=== PATIENT | male | born 1975 | race Caucasian/White ===

== ENCOUNTER 2024-02-16 14:55 | Emergency (ER) | payer MEDICAID ==
[~2024-02-16] VITALS: Ht 177.8 cm; Wt 70.3 kg
[2024-02-16] MEDS ORDERED: AMOX-430 PO (15:42)
[2024-02-16] MEDS ORDERED: DOXY100C2 PO (15:42)
[2024-02-16] MEDS ORDERED: TDAP [DIPH/PERTUSSIS/TET] 0.5 ML VIAL IM ONE (15:49)
[2024-02-16] MEDS: TDAP [DIPH/PERTUSSIS/TET] 0.5 ML VIAL IM ONE (15:52)
[2024-02-16 15:56] VITALS: BP 128/78; TEMP 97.9; O2SAT 100
== END 2024-02-16 15:57 | disposition home or self-care (01) ==
LOC: ER 15:02
DX: S61.432A Puncture wound without foreign body of left hand, initial encounter (principal); L03.114 Cellulitis of left upper limb; W54.0XXA Bitten by dog, initial encounter; Y93.89 Activity, other specified; Y92.89 Other specified places as the place of occurrence of the external cause; Y99.8 Other external cause status
CPT/HCPCS: 90715